=== PATIENT | female | born 1940 | race Caucasian/White ===

== ENCOUNTER 2023-05-19 14:18 | Emergency (ER) | payer MEDICARE ==
[2023-05-19] MEDS ORDERED: Ondansetron 4 MG Tab.DIS PO ONE ×2 (14:19→14:49)
[2023-05-19] MEDS ORDERED: Diphtheria,Pertussis(Acell),Tetanus Vaccine 0.5 ML Syringe IM ONE (14:49)
[2023-05-19 14:54] VITALS: BP 139/72; PULSE 55
[2023-05-19 15:07] LABS: BASOPHILS PERCENT AUTO 0.4 % (0.2-1.5); EOSINOPHILS ABSOLUTE AUTO 0.1 x10-3/uL (0.0-0.8); EOSINOPHILS PERCENT AUTO 0.7 % (0.6-8.1); HEMATOCRIT 41.3 % (34.2-48.2); HEMOGLOBIN 14.2 g/dL (11.4-15.5); LYMPHOCYTES PERCENT AUTO 11.5 % (18.4-52.1); MEAN CORPUSCULAR HEMOGLOBIN 31.9 pg (23.9-33.9); MEAN CORPUSCULAR HGB CONC 34.4 g/dL (31.9-34.8); MEAN CORPUSCULAR VOLUME 92.7 fL (76.7-100.5); MEAN PLATELET VOLUME 8.3 fL (7.1-12.4); MONOCYTES ABSOLUTE AUTO 0.3 x10-3/uL (0.3-1.0); MONOCYTES PERCENT AUTO 3.1 % (4.4-15.7); NEUTROPHILS ABSOLUTE AUTO 7.2 x10-3/uL (1.5-6.3); NEUTROPHILS PERCENT AUTO 84.3 % (30.8-76.2); PLATELET COUNT,PLT 186 x10(3)uL (151-488); RED BLOOD CELL COUNT 4.45 x10(6)uL (3.60-5.20); RED CELL DISTRIBUTION WIDTH 14.8 % (12.3-16.5); WHITE BLOOD CELL COUNT,WBC 8.6 x10-3/uL (3.0-10.3)
[2023-05-19 15:14] LABS: BLOOD UREA NITROGEN,BUN 18 mg/dL (7-18); CALCIUM 9.2 mg/dL (8.6-10.2); CARBON DIOXIDE,CO2 29 mmol/L (21-32); CHLORIDE,CL 103 mmol/L (100-110); CREATININE 0.9 mg/dL (0.55-1.02); ESTIMATED GFR 63 mL/min (>60); GLUCOSE RANDOM 113 mg/dL (80-116); POTASSIUM,K 4.2 mmol/L (3.5-5.3); SODIUM,NA 138 mmol/L (135-145)
[2023-05-19 15:20] LABS: ALANINE AMINOTRANSFERASE,ALT 23 U/L (12-36); ALBUMIN 3.5 g/dL (3.2-4.6); ALKALINE PHOSPHATASE 55 IU/L (56-112); ASPARTATE AMNIOTRANSFERASE,AST 32 IU/L (5-25); BILIRUBIN TOTAL 1.2 mg/dL (0.1-1.3); MAGNESIUM 1.9 mg/dL (1.8-2.5); PROTEIN TOTAL,TP 6.9 g/dL (6.0-8.0)
[2023-05-19 15:59] LABS: BILIRUBIN,URINE NEGATIVE (NEGATIVE); GLUCOSE,URINE NORMAL (NORMAL); KETONES,URINE NEGATIVE (NEGATIVE); LEUKOCYTE ESTERASE,URINE MODERATE (NEGATIVE); NITRITE,URINE NEGATIVE (NEGATIVE); OCCULT BLOOD,URINE MODERATE (NEGATIVE); PROTEIN,URINE TRACE mg/dL (NEGATIVE); UROBILINOGEN,URINE NORMAL (NEGATIVE)
[2023-05-19] MEDS ORDERED: Bacitracin Oint 28.35 GM Tube TOP ONE (16:14)
[2023-05-19 16:24] LABS: APPEARANCE,URINE SLIGHTLY CLOUDY (CLEAR); BACTERIA,URINE MODERATE (NS); COLOR,URINE YELLOW (YELLOW); RBC,URINE 0-5 (0-5); SQUAMOUS EPITHELIAL CELLS,UR MODERATE (NS,R,O); WBC,URINE 20-30 (0-5)
[2023-05-19] MEDS ORDERED: Cephalexin 500 MG Cap PO ONE (16:48)
== END 2023-05-19 17:10 | disposition home or self-care (01) ==
LOC: FB.ED 14:18
DX: S06.0X0A Concussion without loss of consciousness, initial encounter (principal); S00.03XA Contusion of scalp, initial encounter; N39.0 Urinary tract infection, site not specified; R11.2 Nausea with vomiting, unspecified; I10 Essential (primary) hypertension; E03.9 Hypothyroidism, unspecified; Z79.82 Long term (current) use of aspirin; Z79.899 Other long term (current) drug therapy; Z88.0 Allergy status to penicillin; Z88.2 Allergy status to sulfonamides; Z88.8 Allergy status to other drugs, medicaments and biological substances; W18.30XA Fall on same level, unspecified, initial encounter; Y93.01 Activity, walking, marching and hiking; Y92.030 Kitchen in apartment as the place of occurrence of the external cause
CPT/HCPCS: 36415; 70450; 72072; 72100; 72125; 80053; 81001; 83735; 85025; 87086; 87088; 87186; 90471; 90715; 93005; 99284-25; A9270-GY; Q0162

== ENCOUNTER 2024-04-03 16:16 | Inpatient (IN) | payer MEDICARE ==
[2024-04-03] MEDS ORDERED: Sodium Chloride 0.9% 10 ML Syringe FLUSH PRN (16:35)
[2024-04-03] MEDS ORDERED: Naloxone 0.4 MG/ML SDV IVPUSH PRN (16:37)
[2024-04-03] MEDS: Sodium Chloride 0.9% 1,000 ML IV SCH (16:56)
[2024-04-03] MEDS: Ondansetron 4 MG/2 ML SDV IVPUSH ONE (16:57)
[2024-04-03 17:01] LABS: BASOPHILS PERCENT AUTO 0.5 % (0.2-1.5); EOSINOPHILS ABSOLUTE AUTO 0.1 x10-3/uL (0.0-0.8); EOSINOPHILS PERCENT AUTO 0.7 % (0.6-8.1); HEMATOCRIT 40.9 % (34.2-48.2); HEMOGLOBIN 13.8 g/dL (11.4-15.5); LYMPHOCYTES ABSOLUTE AUTO 2.1 x10-3/uL (1.0-4.4); LYMPHOCYTES PERCENT AUTO 20.6 % (18.4-52.1); MEAN CORPUSCULAR HEMOGLOBIN 31.7 pg (23.9-33.9); MEAN CORPUSCULAR HGB CONC 33.8 g/dL (31.9-34.8); MEAN PLATELET VOLUME 7.3 fL (7.1-12.4); MONOCYTES ABSOLUTE AUTO 0.8 x10-3/uL (0.3-1.0); MONOCYTES PERCENT AUTO 7.6 % (4.4-15.7); NEUTROPHILS ABSOLUTE AUTO 7.2 x10-3/uL (1.5-6.3); NEUTROPHILS PERCENT AUTO 70.6 % (30.8-76.2); PLATELET COUNT,PLT 348 x10(3)uL (151-488); RED BLOOD CELL COUNT 4.35 x10(6)uL (3.60-5.20); RED CELL DISTRIBUTION WIDTH 15.2 % (12.3-16.5); WHITE BLOOD CELL COUNT,WBC 10.1 x10-3/uL (3.0-10.3)
[2024-04-03 17:04] LABS: BLOOD UREA NITROGEN,BUN 27 mg/dL (7-18); CALCIUM 9.6 mg/dL (8.6-10.2); CARBON DIOXIDE,CO2 23 mmol/L (21-32); CHLORIDE,CL 105 mmol/L (100-110); CREATININE 0.9 mg/dL (0.55-1.02); EST CRCL DRUG DOSING (CG) 36.14 mL/min; ESTIMATED GFR 63 mL/min (>60); GLUCOSE RANDOM 101 mg/dL (80-116); POTASSIUM,K 4.9 mmol/L (3.5-5.3); SODIUM,NA 138 mmol/L (135-145)
[2024-04-03] MEDS: Morphine 2 MG/ML SYRINGE IVPUSH ONE (17:06)
[2024-04-03 17:10] LABS: ALANINE AMINOTRANSFERASE,ALT 21 U/L (12-36); ALBUMIN 3.5 g/dL (3.2-4.6); ALKALINE PHOSPHATASE 102 IU/L (56-112); ASPARTATE AMNIOTRANSFERASE,AST 21 IU/L (5-25); BILIRUBIN TOTAL 0.7 mg/dL (0.1-1.3); PROTEIN TOTAL,TP 7.2 g/dL (6.0-8.0)
[2024-04-03 17:19] LABS: BILIRUBIN,URINE NEGATIVE (NEGATIVE); GLUCOSE,URINE NORMAL (NORMAL); KETONES,URINE NEGATIVE (NEGATIVE); LEUKOCYTE ESTERASE,URINE NEGATIVE (NEGATIVE); NITRITE,URINE NEGATIVE (NEGATIVE); OCCULT BLOOD,URINE NEGATIVE (NEGATIVE); PROTEIN,URINE NEGATIVE (NEGATIVE); UROBILINOGEN,URINE NORMAL (NEGATIVE)
[2024-04-03 17:27] LABS: APPEARANCE,URINE CLEAR (CLEAR); BACTERIA,URINE RARE (NS); COLOR,URINE YELLOW (YELLOW); HYALINE CASTS,URINE RARE (NS); RBC,URINE 0-5 (0-5); SQUAMOUS EPITHELIAL CELLS,UR MODERATE (NS,R,O); WBC,URINE 0-5 (0-5)
[2024-04-03 17:28] LABS: MUCUS,URINE RARE (NS)
[2024-04-03] MEDS: LORazepam 2 MG/ML SDV IVPUSH ONE (20:12)
[2024-04-03] MEDS ORDERED: Melatonin 3 MG Tab PO PRN (20:51)
[2024-04-03] MEDS ORDERED: Ondansetron 4 MG/2 ML SDV IV PRN (20:51)
[2024-04-03] MEDS ORDERED: HYDROmorphone 2 MG/ML SDV IVPUSH PRN (20:51)
[2024-04-03] MEDS ORDERED: Acetaminophen 500 MG Tab PO PRN (22:25)
[2024-04-03] MEDS: Enoxaparin 40 MG/0.4 ML Syringe SUBCUT SCH (22:50)
[2024-04-03] MEDS: Pantoprazole 40 MG Vial IVPUSH SCH (22:50)
[2024-04-03] MEDS: Naproxen 500 MG Tab PO PRN (23:00)
[2024-04-03] MEDS: Acetaminophen 500 MG Tab PO PRN (23:00)
[2024-04-04 06:41] LABS: BASOPHILS PERCENT AUTO 0.6 % (0.2-1.5); EOSINOPHILS ABSOLUTE AUTO 0.1 x10-3/uL (0.0-0.8); HEMATOCRIT 36.8 % (34.2-48.2); HEMOGLOBIN 12.4 g/dL (11.4-15.5); LYMPHOCYTES ABSOLUTE AUTO 2.4 x10-3/uL (1.0-4.4); LYMPHOCYTES PERCENT AUTO 33.4 % (18.4-52.1); MEAN CORPUSCULAR HGB CONC 33.8 g/dL (31.9-34.8); MEAN CORPUSCULAR VOLUME 94.8 fL (76.7-100.5); MEAN PLATELET VOLUME 7.4 fL (7.1-12.4); MONOCYTES ABSOLUTE AUTO 0.5 x10-3/uL (0.3-1.0); MONOCYTES PERCENT AUTO 7.4 % (4.4-15.7); NEUTROPHILS ABSOLUTE AUTO 4.1 x10-3/uL (1.5-6.3); NEUTROPHILS PERCENT AUTO 56.6 % (30.8-76.2); PLATELET COUNT,PLT 306 x10(3)uL (151-488); RED BLOOD CELL COUNT 3.88 x10(6)uL (3.60-5.20); RED CELL DISTRIBUTION WIDTH 15.5 % (12.3-16.5); WHITE BLOOD CELL COUNT,WBC 7.3 x10-3/uL (3.0-10.3)
[2024-04-04 06:46] LABS: BLOOD UREA NITROGEN,BUN 31 mg/dL (7-18); BUN/CREATININE RATIO 22.1 (9-20); CALCIUM 8.8 mg/dL (8.6-10.2); CARBON DIOXIDE,CO2 23 mmol/L (21-32); CHLORIDE,CL 107 mmol/L (100-110); CREATININE 1.4 mg/dL (0.55-1.02); EST CRCL DRUG DOSING (CG) 23.24 mL/min; ESTIMATED GFR 37 mL/min (>60); GLUCOSE RANDOM 82 mg/dL (80-116); POTASSIUM,K 4.7 mmol/L (3.5-5.3); SODIUM,NA 139 mmol/L (135-145)
[2024-04-04] MEDS ORDERED: Loperamide 2 MG Cap PO PRN (09:45)
[2024-04-04] MEDS: Allopurinol 300 MG Tab PO SCH (10:31)
[2024-04-04] MEDS: Atenolol 50 MG Tab PO SCH (10:32)
[2024-04-04] MEDS: Potassium Chloride 20 MEQ Tab.ER PO SCH (10:33)
[2024-04-04] MEDS: Levothyroxine 112 MCG Tab PO SCH (10:33)
[2024-04-04] MEDS: Gadoteridol 279.3 MG/ML 10 ML SDV IVPUSH ONE (10:35)
[2024-04-04 11:52] LABS: BILIRUBIN,URINE NEGATIVE (NEGATIVE); GLUCOSE,URINE NORMAL (NORMAL); KETONES,URINE NEGATIVE (NEGATIVE); LEUKOCYTE ESTERASE,URINE NEGATIVE (NEGATIVE); NITRITE,URINE NEGATIVE (NEGATIVE); OCCULT BLOOD,URINE NEGATIVE (NEGATIVE); PROTEIN,URINE NEGATIVE (NEGATIVE); UROBILINOGEN,URINE NORMAL (NEGATIVE)
[2024-04-04] MEDS: Sodium Chloride 0.9% 1,000 ML IV SCH (12:08)
[2024-04-04] MEDS: Sodium Chloride 0.9% 10 ML Syringe FLUSH PRN (12:08)
[2024-04-04 12:15] LABS: APPEARANCE,URINE CLEAR (CLEAR); BACTERIA,URINE MODERATE (NS); COLOR,URINE YELLOW (YELLOW); HYALINE CASTS,URINE FEW (NS); RBC,URINE 0-5 (0-5); SQUAMOUS EPITHELIAL CELLS,UR MODERATE (NS,R,O); WBC,URINE 0-5 (0-5)
[2024-04-04] MEDS: Cholestyramine/Sucrose Powder 4 GM Packet PO SCH (12:26)
[2024-04-04] MEDS: Bumetanide 1 MG Tab PO SCH (12:26)
[2024-04-04] MEDS: Acetaminophen 500 MG Tab PO SCH (13:49)
[2024-04-04] MEDS: traMADol 50 MG Tab PO PRN (15:32)
[2024-04-04] MEDS: Polyethylene Glycol 3350 Powder 17 GM Packet PO SCH (18:09)
[2024-04-04] MEDS: Heparin Sodium 5,000 Units/ML Vial SUBCUT SCH (20:18)
[2024-04-04] MEDS: Carboxymethylcellulose Sodium 0.5% Ophth Soln 15 ML Bottle EYEBOTH SCH (20:19)
[2024-04-04] MEDS: LORazepam 2 MG/ML SDV IV PRN (21:30)
[2024-04-05 02:09] VITALS: BP 129/78; PULSE 64
[2024-04-05 21:31] LABS: CREATININE,URINE - PER VOLUME 78 mg/dL; HOURS COLLECTED Random hr; TOTAL VOLUME Random mL; URINE UREA NITROGEN - MG/DL 502 mg/dL
[2024-04-06 02:19] LABS: CREATININE,URINE - PER VOLUME 78 mg/dL; HOURS COLLECTED Random hr; TOTAL VOLUME Random mL
== END 2024-04-05 02:03 | DRG 552 ==
LOC: FB.ED 16:16 → FB.MS 20:19
PROVIDERS: ADMIT Emergency Medicine; ATTEND Internal Medicine
DX: S32.010A Wedge compression fracture of first lumbar vertebra, initial encounter for closed fracture (principal); R19.00 Intra-abdominal and pelvic swelling, mass and lump, unspecified site; R29.6 Repeated falls; S22.078A Other fracture of T9-T10 vertebra, initial encounter for closed fracture; N17.9 Acute kidney failure, unspecified; F03.94 Unspecified dementia, unspecified severity, with anxiety; Z66 Do not resuscitate; E78.00 Pure hypercholesterolemia, unspecified; Z79.890 Hormone replacement therapy; Z79.899 Other long term (current) drug therapy; K59.00 Constipation, unspecified; W19.XXXA Unspecified fall, initial encounter; I10 Essential (primary) hypertension; Z96.643 Presence of artificial hip joint, bilateral; Z96.653 Presence of artificial knee joint, bilateral; E03.9 Hypothyroidism, unspecified; Z88.8 Allergy status to other drugs, medicaments and biological substances; Z88.0 Allergy status to penicillin; Z88.2 Allergy status to sulfonamides; Z85.828 Personal history of other malignant neoplasm of skin; Z90.89 Acquired absence of other organs; Z98.42 Cataract extraction status, left eye; Z98.41 Cataract extraction status, right eye; Z90.49 Acquired absence of other specified parts of digestive tract; Z90.710 Acquired absence of both cervix and uterus; W18.30XA Fall on same level, unspecified, initial encounter; Y92.009 Unspecified place in unspecified non-institutional (private) residence as the place of occurrence of the external cause
CPT/HCPCS: 36415; 72128; 72131; 80053; 81001; 83735; 85025; 93005; 96361; 96374; 96375; 99285; J2060; J2270; J2405; J7030; U0002; 72146; 72148; 72197; 80048; 82570; 84540; 94150; 99222; 99238; A9270-GY; A9579; J1644; J1650; J2470; J3490

== ENCOUNTER 2024-06-01 10:05 | Emergency (ER) | payer MEDICARE ==
[2024-06-01 10:37] LABS: BASOPHILS PERCENT AUTO 0.6 % (0.2-1.5); EOSINOPHILS PERCENT AUTO 0.7 % (0.6-8.1); HEMATOCRIT 40.7 % (34.2-48.2); HEMOGLOBIN 13.8 g/dL (11.4-15.5); LYMPHOCYTES ABSOLUTE AUTO 1.5 x10-3/uL (1.0-4.4); LYMPHOCYTES PERCENT AUTO 32.5 % (18.4-52.1); MEAN CORPUSCULAR HEMOGLOBIN 32.3 pg (23.9-33.9); MEAN CORPUSCULAR HGB CONC 33.8 g/dL (31.9-34.8); MEAN CORPUSCULAR VOLUME 95.4 fL (76.7-100.5); MEAN PLATELET VOLUME 7.3 fL (7.1-12.4); MONOCYTES ABSOLUTE AUTO 0.3 x10-3/uL (0.3-1.0); NEUTROPHILS ABSOLUTE AUTO 2.8 x10-3/uL (1.5-6.3); NEUTROPHILS PERCENT AUTO 59.2 % (30.8-76.2); PLATELET COUNT,PLT 264 x10(3)uL (151-488); RED BLOOD CELL COUNT 4.26 x10(6)uL (3.60-5.20); WHITE BLOOD CELL COUNT,WBC 4.7 x10-3/uL (3.0-10.3)
[2024-06-01 10:43] LABS: BILIRUBIN,URINE NEGATIVE (NEGATIVE); GLUCOSE,URINE NORMAL (NORMAL); KETONES,URINE NEGATIVE (NEGATIVE); LEUKOCYTE ESTERASE,URINE NEGATIVE (NEGATIVE); NITRITE,URINE NEGATIVE (NEGATIVE); OCCULT BLOOD,URINE NEGATIVE (NEGATIVE); PROTEIN,URINE NEGATIVE (NEGATIVE); UROBILINOGEN,URINE NORMAL (NEGATIVE)
[2024-06-01 10:44] LABS: BLOOD UREA NITROGEN,BUN 12 mg/dL (7-18); CARBON DIOXIDE,CO2 28 mmol/L (21-32); CHLORIDE,CL 100 mmol/L (100-110); CREATININE 0.8 mg/dL (0.55-1.02); ESTIMATED GFR 72 mL/min (>60); GLUCOSE RANDOM 99 mg/dL (80-116); SODIUM,NA 138 mmol/L (135-145)
[2024-06-01] MEDS: Sodium Chloride 0.9% 1,000 ML IV ONE (10:44)
[2024-06-01 10:50] LABS: ALANINE AMINOTRANSFERASE,ALT 24 U/L (12-36); ALBUMIN 3.6 g/dL (3.2-4.6); ALKALINE PHOSPHATASE 80 IU/L (56-112); ASPARTATE AMNIOTRANSFERASE,AST 28 IU/L (5-25); BILIRUBIN TOTAL 0.6 mg/dL (0.1-1.3); PROTEIN TOTAL,TP 7.1 g/dL (6.0-8.0)
[2024-06-01 10:50] LABS: APPEARANCE,URINE CLEAR (CLEAR); BACTERIA,URINE FEW (NS); COLOR,URINE YELLOW (YELLOW); RBC,URINE 0-5 (0-5); SQUAMOUS EPITHELIAL CELLS,UR MODERATE (NS,R,O); WBC,URINE 0-5 (0-5)
[2024-06-01 10:52] LABS: LACTIC ACID 1.2 mmol/L (0.4-2.0)
[2024-06-01] MEDS: Ketorolac 30 MG/ML SDV IVPUSH ONE (11:36)
[2024-06-01 12:28] VITALS: BP 180/92; PULSE 64
== END 2024-06-01 12:50 | disposition home or self-care (01) ==
LOC: FB.ED 10:05
DX: S32.019A Unspecified fracture of first lumbar vertebra, initial encounter for closed fracture (principal); R26.89 Other abnormalities of gait and mobility; I10 Essential (primary) hypertension; E78.00 Pure hypercholesterolemia, unspecified; E03.9 Hypothyroidism, unspecified; Z88.5 Allergy status to narcotic agent; Z88.2 Allergy status to sulfonamides; Z88.0 Allergy status to penicillin; Z79.890 Hormone replacement therapy; Z79.899 Other long term (current) drug therapy; Z90.49 Acquired absence of other specified parts of digestive tract; W19.XXXA Unspecified fall, initial encounter
CPT/HCPCS: 36415; 80053; 81001; 82550; 83605; 85025; 86140; 96361; 96374; 99284; J1885; J7030

== ENCOUNTER 2024-10-15 11:48 | Emergency (ER) | payer MEDICARE ==
[2024-10-15 12:34] VITALS: PULSE 60
[2024-10-15 15:25] VITALS: BP 181/87
== END 2024-10-15 15:10 | disposition home or self-care (01) ==
LOC: FB.ED 11:48
DX: S00.03XA Contusion of scalp, initial encounter (principal); I10 Essential (primary) hypertension; E03.9 Hypothyroidism, unspecified; Z90.49 Acquired absence of other specified parts of digestive tract; Z90.710 Acquired absence of both cervix and uterus; Z88.2 Allergy status to sulfonamides; Z88.8 Allergy status to other drugs, medicaments and biological substances; Z79.890 Hormone replacement therapy; Z79.899 Other long term (current) drug therapy; W19.XXXA Unspecified fall, initial encounter
CPT/HCPCS: 70450; 72125; 99283

== ENCOUNTER 2024-11-03 15:15 | Emergency (ER) | payer MEDICARE ==
[2024-11-03 15:26] VITALS: BP 188/96; PULSE 63
== END 2024-11-03 18:32 ==
LOC: FB.ED 15:15
DX: S22.41XA Multiple fractures of ribs, right side, initial encounter for closed fracture (principal); I10 Essential (primary) hypertension; E78.00 Pure hypercholesterolemia, unspecified; E03.9 Hypothyroidism, unspecified; Z90.49 Acquired absence of other specified parts of digestive tract; Z88.0 Allergy status to penicillin; Z88.2 Allergy status to sulfonamides; Z88.8 Allergy status to other drugs, medicaments and biological substances; Z79.890 Hormone replacement therapy; Z79.899 Other long term (current) drug therapy; W18.39XA Other fall on same level, initial encounter; Y93.89 Activity, other specified
CPT/HCPCS: 71101-RT; 99283

== ENCOUNTER 2025-08-28 09:49 | Emergency (ER) | payer MEDICARE ==
[2025-08-28 10:59] LABS: BASOPHILS ABSOLUTE AUTO 0.0 x10-3/uL (0.0-0.1); BASOPHILS PERCENT AUTO 0.7 % (0.2-1.5); EOSINOPHILS ABSOLUTE AUTO 0.1 x10-3/uL (0.0-0.8); EOSINOPHILS PERCENT AUTO 2.8 % (0.6-8.1); LYMPHOCYTES ABSOLUTE AUTO 1.6 x10-3/uL (1.0-4.4); LYMPHOCYTES PERCENT AUTO 33.3 % (18.4-52.1); MEAN PLATELET VOLUME 8.0 fL (7.1-12.4); MONOCYTES ABSOLUTE AUTO 0.6 x10-3/uL (0.3-1.0); MONOCYTES PERCENT AUTO 11.8 % (4.4-15.7); NEUTROPHILS ABSOLUTE AUTO 2.5 x10-3/uL (1.5-6.3); NEUTROPHILS PERCENT AUTO 51.4 % (30.8-76.2); PLATELET COUNT,PLT 195 x10(3)uL (151-488); RED BLOOD CELL COUNT 4.45 x10(6)uL (3.60-5.20); RED CELL DISTRIBUTION WIDTH 14.2 % (12.3-16.5); WHITE BLOOD CELL COUNT,WBC 4.8 x10-3/uL (3.0-10.3)
[2025-08-28 11:04] LABS: BLOOD UREA NITROGEN,BUN 28 mg/dL (7-18); CARBON DIOXIDE,CO2 30 mmol/L (21-32); CHLORIDE,CL 105 mmol/L (100-110); CREATININE 1.1 mg/dL (0.55-1.02); ESTIMATED GFR 49 mL/min (>60); GLUCOSE RANDOM 74 mg/dL (80-116); POTASSIUM,K 4.2 mmol/L (3.5-5.3); SODIUM,NA 142 mmol/L (135-145)
[2025-08-28 11:10] LABS: A/G RATIO 1.0; ALANINE AMINOTRANSFERASE,ALT 27 U/L (12-36); ASPARTATE AMNIOTRANSFERASE,AST 26 IU/L (5-25); BILIRUBIN TOTAL 0.6 mg/dL (0.1-1.3); PROTEIN TOTAL,TP 6.7 g/dL (6.0-8.0)
[2025-08-28 11:20] LABS: PRO B-TYPE NATRIUR PEPT,BNPPRO 1841 pg/mL (<=450)
[2025-08-28 12:05] LABS: GLUCOSE,URINE NORMAL (NORMAL); OCCULT BLOOD,URINE NEGATIVE (NEGATIVE)
[2025-08-28 12:07] LABS: APPEARANCE,URINE CLOUDY (CLEAR)
[2025-08-28 12:12] LABS: EPITHELIAL CELLS,URINE RARE
[2025-08-28 13:41] VITALS: BP 125/86; PULSE 80
== END 2025-08-28 13:52 ==
LOC: FB.ED 09:49
DX: J98.11 Atelectasis (principal); N39.0 Urinary tract infection, site not specified; R53.83 Other fatigue; I10 Essential (primary) hypertension; E78.00 Pure hypercholesterolemia, unspecified; E03.9 Hypothyroidism, unspecified; Z88.0 Allergy status to penicillin; Z88.2 Allergy status to sulfonamides; Z79.890 Hormone replacement therapy; Z79.899 Other long term (current) drug therapy
CPT/HCPCS: 36415; 71045; 80053; 81001; 83735; 83880; 84443; 84484; 85025; 86140; 87086; 87088; 87186; 93005; 96372; 99285; J0696; 93010; 99284